=== PATIENT | female | born 1975 | race American Indian/Alaskan Native ===

== ENCOUNTER 2017-01-21 13:29 | Emergency (ER) | payer MEDICAID ==
--- NOTE | 2017-01-21 14:26 | Emergency Department Report ---
ED Psych HPI - General Chief Complaint: Altered Mental Status Stated Complaint: AMS Time Seen by Provider: 01/21/17 14:25 Source: EMS Mode of arrival: Stretcher Limitations: No Limitations - History of Present Illness MD Complaint: feels depressed, altered mental status Onset/Timin -: Gradual, days(s) Associated Psychiatric Symptoms: depression, auditory hallucinations, visual hallucinations Quality: constant Improves With: none Worsens With: none Context: not taking psychiatric, significant life stressor Associated Symptoms: confusion, insomnia. denies: headache, shortness of breath , nausea, vomiting, syncope Treatments Prior to Arrival: chemical restraints - Related Data Home Medications Medication Instructions Recorded Confirmed Last Taken Ibuprofen [Motrin] 800 mg PO Q8HR PRN 01/21/17 01/21/17 Unknown Allergies Allergy/AdvReac Type Severity Reaction Status Date / Time ibuprofen [From Motrin] Allergy Rash Verified 07/30/14 09:18 ketorolac tromethamine Allergy Rash Verified 07/30/14 09:18 [From Toradol] NSAIDS (Non-Steroidal AdvReac Nausea Verified 07/30/14 09:18 Anti-Inflamma ED Review of Systems ROS: Stated complaint: AMS Other details as noted in HPI Comment: Unobtainable due to pts medical conditions ED Past Medical Hx - Past Medical History Hx Hypertension: Yes Hx Arthritis: Yes Hx Psychiatric Treatment: Yes (bipolar) Additional medical history: endometriosis - Surgical History Hx Cholecystectomy: Yes Hx Appendectomy: Yes Additional Surgical History: hysterectomy, hernia repair, bowel resection secondary to adhesions r/t endometriosis - Social History Smoking Status: Current Some Day Smoker Substance Use Type: None - Medications Home Medications: Home Medications Medication Instructions Recorded Confirmed Last Taken Type Ibuprofen [Motrin] 800 mg PO Q8HR PRN 01/21/17 01/21/17 Unknown History ED Physical Exam - General Limitations: Altered Mental Status General appearance: in no apparent distress - Head Head exam: Present: atraumatic, normocephalic - Eye Eye exam: Present: normal appearance - ENT ENT exam: Present: mucous membranes moist - Neck Neck exam: Present: normal inspection - Respiratory Respiratory exam: Present: normal lung sounds bilaterally. Absent: respiratory distress - Cardiovascular Cardiovascular Exam: Present: regular rate, normal rhythm. Absent: systolic murmur, diastolic murmur, rubs, gallop - GI/Abdominal GI/Abdominal exam: Present: soft, normal bowel sounds - Extremities Exam Extremities exam: Present: normal inspection - Back Exam Back exam: Present: normal inspection - Neurological Exam Neurological exam: Present: alert, oriented X3 - Psychiatric Psychiatric exam: Present: depressed. Absent: suicidal ideation - Skin Skin exam: Present: warm, dry, intact, normal color. Absent: rash ED Course Vital Signs 01/21/17 01/21/17 01/21/17 13:43 14:30 15:30 Temperature 98 F Pulse Rate 62 61 60 Respiratory 16 16 14 Rate Blood Pressure 137/49 Blood Pressure 132/75 121/83 [Right] O2 Sat by Pulse 100 99 100 Oximetry 01/21/17 17:55 Temperature 100.5 F H Pulse Rate 83 Respiratory 16 Rate Blood Pressure Blood Pressure 133/86 [Right] O2 Sat by Pulse 100 Oximetry ED Medical Decision Making - Lab Data Result diagrams: 01/21/17 13:54 01/21/17 13:54 - EKG Data When compared to previous EKG there are: no significant change - Medical Decision Making patient back to baseline, no symptoms, at this time/ , will obtain a head ct prior to discharge, doing well and spoke to her huey garzon Critical care attestation.: If time is entered above; I have spent that time in minutes in the direct care of this critically ill patient, excluding procedure time. ED Disposition Clinical Impression: Weakness Disposition: DISCHARGED TO HOME OR SELFCARE Is pt being admited?: No Does the pt Need Aspirin: No Condition: Stable Instructions: Weakness (ED)
[2017-01-21 14:35] LABS: Urine Drugs of Abuse Note Disclamer
[2017-01-21 14:37] LABS: Anion Gap 27 mmol/L; Basophils % (Auto) 0.2 % (0.0-1.8); Blood Urea Nitrogen 10 mg/dL (7-17); Calcium 9.3 mg/dL (8.4-10.2); Carbon Dioxide 17 mmol/L (22-30); Glucose 91 mg/dL (65-100); Hematocrit 41.7 % (30.3-42.9); Hemoglobin 13.7 gm/dl (10.1-14.3); Mean Corpuscular HGB Conc 33 % (30-34); Mean Corpuscular Hemoglobin 33 pg (28-32); Mean Corpuscular Volume 102 fl (79-97); Platelet Count 188 K/mm3 (140-440); Potassium 3.1 mmol/L (3.6-5.0); Red Blood Count 4.09 M/mm3 (3.65-5.03); Sodium 145 mmol/L (137-145); White Blood Count 11.9 K/mm3 (4.5-11.0)
[2017-01-21 15:04] LABS: Bacteria,Urine 2+ /HPF (Negative); Bilirubin,Urine NEG (Negative); Blood,Urine MOD (Negative); Granular Casts,Urine 8 /LPF; Ketones,Urine NEG (Negative); Leukocyte Esterase,Urine NEG (Negative); Mucus,Urine 3+ /HPF; Nitrite,Urine NEG (Negative); Urobilinogen,Urine < 2.0 mg/dL (<2.0)
[2017-01-21] MEDS ORDERED: TYLENOL ONE (18:01)
[2017-01-21] MEDS ORDERED: TYLENOL PO ONE (18:06)
--- NOTE | 2017-01-21 19:42 | Cat Scan Report ---
FINAL REPORT PROCEDURE: CT HEAD/BRAIN WO CON TECHNIQUE: Computerized tomography of the head was performed without contrast material. HISTORY: Altered Mental Status COMPARISON: No prior studies are available for comparison. FINDINGS: Skull and scalp: Normal. Paranasal sinuses: Normal. Ventricles and subarachnoid spaces: Normal. Cerebrum: No evidence of hemorrhage, acute infarction or mass . Cerebellum and brainstem: No evidence of hemorrhage, acute infarction or mass. Vasculature: Normal. Comments: None. IMPRESSION: There is no evidence of an acute intracranial process.
[2017-01-21 19:51] VITALS: BP 115/72
== END 2017-01-21 20:04 | disposition home or self-care (01) ==
LOC: ED 13:29
DX: R53.1 Weakness (principal); I10 Essential (primary) hypertension; M19.90 Unspecified osteoarthritis, unspecified site; F31.9 Bipolar disorder, unspecified; F17.200 Nicotine dependence, unspecified, uncomplicated; Z90.49 Acquired absence of other specified parts of digestive tract; Z88.6 Allergy status to analgesic agent; Z88.8 Allergy status to other drugs, medicaments and biological substances
CPT/HCPCS: 36415; 70450; 80048; 80307; 81001; 81025; 82140; 85025; 93005; 93010; 99285; G0480; 80320

== ENCOUNTER 2017-10-29 05:44 | Emergency (ER) | payer MEDICAID, OTHER ==
[2017-10-29] MEDS ORDERED: DILAUDID IV ONE ×2 (07:05→11:33)
[2017-10-29] MEDS ORDERED: NACL 0.9% 1000 ML 1,000 ML IV ONE (07:05)
[2017-10-29] MEDS ORDERED: ZOFRAN IV ONE ×2 (07:05→11:34)
--- NOTE | 2017-10-29 07:12 | Emergency Department Report ---
ED Abdominal Pain HPI - General Chief Complaint: Abdominal Pain Stated Complaint: ABDOMINAL PAIN Time Seen by Provider: 10/29/17 06:54 Source: patient Mode of arrival: Stretcher Limitations: No Limitations - History of Present Illness Initial Comments: Ms. Torres is a 41 yo female with hx of endometriosis. 2 days of abdominal pain and vomiting hx of several surgeries including hysterectomy, pelvic/abdominal mesh insertion , laparoscopic/exploratory, cholecystectomy, appendectomy -: Gradual, days(s) (2) Location: diffuse (periumbilical) Radiation: none Migration to: no migration Severity: severe Severity scale (0 -10): 10 Quality: sharp, burning Consistency: constant Improves With: nothing Worsens With: nothing Associated Symptoms: nausea, vomiting. denies: diarrhea, fever, chills, dysuria - Related Data Home Medications Medication Instructions Recorded Confirmed Last Taken Ibuprofen [Motrin] 800 mg PO Q8HR PRN 01/21/17 01/21/17 Unknown Previous Rx's Medication Instructions Recorded Last Taken Type ALPRAZolam [Xanax TAB] 0.5 mg PO BID PRN #14 tab 01/21/17 Unknown Rx HYDROcodone/APAP 5-325 [[place] 1 each PO Q4HR PRN #10 tablet 10/29/17 Unknown Rx 5/325] Promethazine [Phenergan TAB] 25 mg PO Q6HR PRN #10 tab 10/29/17 Unknown Rx Allergies Allergy/AdvReac Type Severity Reaction Status Date / Time ibuprofen [From Motrin] Allergy Rash Verified 07/30/14 09:18 ketorolac tromethamine Allergy Rash Verified 07/30/14 09:18 [From Toradol] NSAIDS (Non-Steroidal AdvReac Nausea Verified 07/30/14 09:18 Anti-Inflamma ED Review of Systems ROS: Stated complaint: ABDOMINAL PAIN Other details as noted in HPI Comment: All other systems reviewed and negative Constitutional: denies: fever, malaise Respiratory: denies: cough Cardiovascular: denies: chest pain ED Past Medical Hx - Past Medical History Hx Hypertension: Yes Hx Arthritis: Yes Hx Psychiatric Treatment: Yes (bipolar) Additional medical history: endometriosis - Surgical History Hx Cholecystectomy: Yes Hx Appendectomy: Yes Additional Surgical History: hysterectomy, hernia repair, bowel resection secondary to adhesions r/t endometriosis - Social History Smoking Status: Current Every Day Smoker Substance Use Type: None - Medications Home Medications: Home Medications Medication Instructions Recorded Confirmed Last Taken Type ALPRAZolam [Xanax TAB] 0.5 mg PO BID PRN #14 tab 01/21/17 Unknown Rx Ibuprofen [Motrin] 800 mg PO Q8HR PRN 01/21/17 01/21/17 Unknown History HYDROcodone/APAP 5-325 [[place] 1 each PO Q4HR PRN #10 tablet 10/29/17 Unknown Rx 5/325] Promethazine [Phenergan TAB] 25 mg PO Q6HR PRN #10 tab 10/29/17 Unknown Rx ED Physical Exam - General Limitations: No Limitations General appearance: alert, in no apparent distress, other (appears uncomfortable ) - Head Head exam: Present: atraumatic, normocephalic - Eye Eye exam: Present: normal appearance - ENT ENT exam: Present: normal orophraynx, mucous membranes moist - Neck Neck exam: Present: normal inspection. Absent: meningismus - Respiratory Respiratory exam: Present: normal lung sounds bilaterally. Absent: respiratory distress, wheezes, rales, rhonchi - Cardiovascular Cardiovascular Exam: Present: regular rate, normal rhythm, normal heart sounds. Absent: systolic murmur, diastolic murmur, rubs, gallop - GI/Abdominal GI/Abdominal exam: Present: soft. Absent: distended, tenderness, guarding, rebound - Extremities Exam Extremities exam: Present: normal inspection - Back Exam Back exam: Present: normal inspection - Neurological Exam Neurological exam: Present: alert, oriented X3 - Psychiatric Psychiatric exam: Present: normal affect, normal mood - Skin Skin exam: Present: warm, dry, intact, normal color. Absent: rash ED Course Vital Signs 10/29/17 10/29/17 10/29/17 06:16 07:15 07:20 Temperature 98 F 98.6 F Pulse Rate 76 53 L Respiratory 16 14 Rate Blood Pressure 158/94 Blood Pressure 150/94 [Left] O2 Sat by Pulse 100 100 100 Oximetry 10/29/17 10/29/17 10/29/17 07:22 07:33 07:47 Temperature Pulse Rate Respiratory 14 Rate Blood Pressure 150/94 150/94 Blood Pressure [Left] O2 Sat by Pulse 100 75 L 99 Oximetry 10/29/17 10/29/17 10/29/17 07:50 08:00 08:15 Temperature Pulse Rate Respiratory 14 Rate Blood Pressure 167/95 167/95 Blood Pressure [Left] O2 Sat by Pulse 99 97 Oximetry 10/29/17 10/29/17 10/29/17 08:30 08:45 09:00 Temperature 98.7 F Pulse Rate 88 Respiratory 16 Rate Blood Pressure 145/76 144/80 134/83 Blood Pressure 134/83 [Left] O2 Sat by Pulse 98 97 100 Oximetry 10/29/17 10/29/17 10/29/17 09:15 09:31 09:45 Temperature Pulse Rate Respiratory Rate Blood Pressure 138/70 131/62 146/83 Blood Pressure [Left] O2 Sat by Pulse 100 100 100 Oximetry 10/29/17 10/29/17 10/29/17 10:00 10:29 10:30 Temperature Pulse Rate Respiratory Rate Blood Pressure 150/75 146/83 146/83 Blood Pressure [Left] O2 Sat by Pulse 98 80 L 87 Oximetry 10/29/17 10/29/17 10/29/17 10:45 11:00 11:15 Temperature Pulse Rate Respiratory Rate Blood Pressure 140/79 145/78 150/75 Blood Pressure [Left] O2 Sat by Pulse 97 95 99 Oximetry 10/29/17 10/29/17 11:31 11:43 Temperature Pulse Rate Respiratory 16 Rate Blood Pressure 150/75 Blood Pressure [Left] O2 Sat by Pulse 98 Oximetry ED Medical Decision Making - Lab Data Result diagrams: 10/29/17 06:55 10/29/17 06:55 - Medical Decision Making Ms. Torres presents with 2 days of abdominal pain. No evidence of obstruction. No evidence of peritonitis. She is currently pain-free. She tolerated food and drink in the ED. I prescribed 10 tablets of [place] and promethazine. Critical care attestation.: If time is entered above; I have spent that time in minutes in the direct care of this critically ill patient, excluding procedure time. ED Disposition Clinical Impression: Abdominal pain Disposition: DC-01 TO HOME OR SELFCARE Is pt being admited?: No Does the pt Need Aspirin: No Condition: Stable Instructions: Abdominal Pain (ED) Prescriptions: HYDROcodone/APAP 5-325 [[place] 5/325] 1 each PO Q4HR PRN #10 tablet PRN Reason: Pain Promethazine [Phenergan TAB] 25 mg PO Q6HR PRN #10 tab PRN Reason: Nausea Referrals: [facility] [Outside] - 3-5 Days Time of Disposition: 12:26
[2017-10-29 09:56] LABS: Basophils % (Auto) 0.5 % (0.0-1.8); Eosinophils % (Auto) 0.3 % (0.0-4.3); Hematocrit 40.8 % (30.3-42.9); Hemoglobin 13.9 gm/dl (10.1-14.3); Lymphocytes # (Auto) 2.3 K/mm3 (1.2-5.4); Lymphocytes % (Auto) 34.6 % (13.4-35.0); Mean Corpuscular HGB Conc 34 % (30-34); Mean Corpuscular Hemoglobin 33 pg (28-32); Mean Corpuscular Volume 97 fl (79-97); Monocytes # (Auto) 0.4 K/mm3 (0.0-0.8); Monocytes % (Auto) 6.1 % (0.0-7.3); Platelet Count 238 K/mm3 (140-440); Red Cell Distribution Width 14.5 % (13.2-15.2)
[2017-10-29 10:02] LABS: Alanine Aminotransferase 11 units/L (7-56); Albumin 4.9 g/dL (3.9-5); BUN/Creatinine Ratio 12; Blood Urea Nitrogen 7 mg/dL (7-17); Calcium 9.4 mg/dL (8.4-10.2); Hemolysis Index 13; Lipase 72 units/L (13-60)
[2017-10-29 11:16] LABS: Bilirubin,Urine NEG (Negative); Blood,Urine MOD (Negative); Color,Urine Yellow (Yellow); Mucus,Urine 2+ /HPF; Protein,Urine <15 mg/dL mg/dL (Negative)
--- NOTE | 2017-10-29 11:56 | Cat Scan Report ---
CT ABDOMEN PELVIS WITH CONTRAST: HISTORY: abdominal pain. COMPARISON: none. TECHNIQUE: Helical CT in 1.25mm intervals following IV contrast. Sagittal and coronal reconstructions. FINDINGS: Lung bases: Normal. Liver: Normal. Biliary system: Normal. Pancreas: Normal. Spleen: Normal. Kidneys/ureters/bladder: Normal. Adrenal glands: Normal. Aorta: Normal. Intestines: Normal. Appendix: Not confidently identified, correlate with surgical history. Pelvic viscera: Hysterectomy changes are suspected. Ascites: Trace pelvic ascites is likely physiologic. Adenopathy: None. Musculoskeletal: Normal. IMPRESSION: No acute process is identified in the abdomen or pelvis.
[2017-10-29 13:07] VITALS: BP 148/91
== END 2017-10-29 13:08 | disposition home or self-care (01) ==
LOC: ED 05:44
DX: R10.9 Unspecified abdominal pain (principal); I10 Essential (primary) hypertension; F17.200 Nicotine dependence, unspecified, uncomplicated; F31.9 Bipolar disorder, unspecified; M19.90 Unspecified osteoarthritis, unspecified site; Z90.49 Acquired absence of other specified parts of digestive tract; Z90.710 Acquired absence of both cervix and uterus; Z88.6 Allergy status to analgesic agent
CPT/HCPCS: 36415; 74177; 80053; 81001; 83690; 85025; 96361; 96374; 96375; 96376; 99285; J1170; J2405; J7030; Q9967

== ENCOUNTER 2020-01-17 19:05 | Emergency (ER) | payer SELFPAY ==
[2020-01-17 19:28] VITALS: BP 162/97
[2020-01-17 21:30] LABS: Basophils # (Auto) 0.1 K/mm3 (0.0-0.1); Basophils % (Auto) 0.9 % (0.0-1.8); Eosinophils # (Auto) 0.1 K/mm3 (0.0-0.4); Eosinophils % (Auto) 1.1 % (0.0-4.3); Hematocrit 37.7 % (30.3-42.9); Hemoglobin 12.7 gm/dl (10.1-14.3); Lymphocytes # (Auto) 3.5 K/mm3 (1.2-5.4); Lymphocytes % (Auto) 38.8 % (13.4-35.0); Mean Corpuscular HGB Conc 34 % (30-34); Mean Corpuscular Volume 96 fl (79-97); Monocytes # (Auto) 0.4 K/mm3 (0.0-0.8); Monocytes % (Auto) 4.8 % (0.0-7.3); Platelet Count 218 K/mm3 (140-440); Red Blood Count 3.92 M/mm3 (3.65-5.03); Red Cell Distribution Width 13.5 % (13.2-15.2)
[2020-01-17 21:47] LABS: Alanine Aminotransferase 9 units/L (7-56); Albumin 4.6 g/dL (3.9-5); BUN/Creatinine Ratio 10; Blood Urea Nitrogen 7 mg/dL (7-17); Calcium 9.4 mg/dL (8.4-10.2); Hemolysis Index 14
[2020-01-17] MEDS ORDERED: HYDROcodone/ACETAMINOPHEN 5-325 MG TAB PO ONE (22:17)
[2020-01-17] MEDS ORDERED: ONDANSETRON 4 MG ODT TAB PO ONE (22:17)
[2020-01-17 22:18] LABS: Bacteria,Urine 1+ /HPF (Negative); Bilirubin,Urine NEG (Negative); Blood,Urine SM (Negative); Color,Urine Straw (Yellow); Protein,Urine <15 mg/dL mg/dL (Negative); Urobilinogen,Urine < 2.0 mg/dL (<2.0); WBC,Urine < 1.0 /HPF (0.0-6.0)
--- NOTE | 2020-01-17 23:06 | Emergency Department Report ---
ED Abdominal Pain HPI - General Chief Complaint: Abdominal Pain Stated Complaint: ABD PAIN Time Seen by Provider: 01/17/20 22:13 Source: patient Mode of arrival: Ambulatory Limitations: No Limitations - History of Present Illness Initial Comments: Ms. Torres is a 44-year-old -[place] female with a history of fibroids and partial hysterectomy. She states increasing abdominal pain for the past week. There is no nausea vomiting, no melena ,no constipation, no fevers or chills. Abdominal pain described as cramping, 5/10. pt has seen [facility] for this problem in 2 yrs. MD Complaint: abdominal pain Onset/Timin -: week(s) Location: LLQ, RLQ Radiation: LLQ, RLQ Migration to: LLQ, RLQ Severity scale (0 -10): 7 Quality: cramping, aching Consistency: constant Improves With: nothing Worsens With: nothing Associated Symptoms: denies: nausea, vomiting, diarrhea, fever, chills, dysuria, melena - Related Data Home Medications Medication Instructions Recorded Confirmed Last Taken Ibuprofen [Motrin] 800 mg PO Q8HR PRN 01/21/17 01/21/17 Unknown Previous Rx's Medication Instructions Recorded Last Taken Type ALPRAZolam [Xanax TAB] 0.5 mg PO BID PRN #14 tab 01/21/17 Unknown Rx HYDROcodone/APAP 5-325 [[place] 1 each PO Q4HR PRN #10 tablet 10/29/17 Unknown Rx 5/325] Promethazine [Phenergan] 25 mg PO Q6HR PRN #10 tab 10/29/17 Unknown Rx HYDROcodone/APAP 5-325 [[place] 1 each PO Q6HR PRN #15 tablet 06/19/18 Unknown Rx 5/325] medroxyPROGESTERone ACETATE 10 mg PO DAILY #5 tablet 06/19/18 Unknown Rx [Provera] Acetaminophen/Codeine [Tylenol 1 tab PO Q6H PRN #12 tab 01/18/20 Unknown Rx /Codeine # 3 tab] Allergies Allergy/AdvReac Type Severity Reaction Status Date / Time ibuprofen [From Motrin] Allergy Rash Verified 07/30/14 09:18 ketorolac tromethamine Allergy Rash Verified 07/30/14 09:18 [From Toradol] NSAIDS (Non-Steroidal AdvReac Nausea Verified 07/30/14 09:18 Anti-Inflamma ED Review of Systems ROS: Stated complaint: ABD PAIN Other details as noted in HPI Constitutional: denies: chills, fever Eyes: denies: eye pain, eye discharge, vision change ENT: denies: ear pain, throat pain Respiratory: denies: cough, shortness of breath, wheezing Cardiovascular: denies: chest pain, palpitations Endocrine: no symptoms reported Gastrointestinal: abdominal pain. denies: nausea, vomiting, diarrhea, constipation, melena Genitourinary: as per HPI Musculoskeletal: denies: back pain, joint swelling, arthralgia Skin: denies: rash, lesions Neurological: denies: headache, weakness, paresthesias Psychiatric: denies: anxiety, depression Hematological/Lymphatic: denies: easy bleeding, easy bruising ED Past Medical Hx - Past Medical History Previous Medical History?: Yes Hx Hypertension: Yes Hx Arthritis: Yes Hx Psychiatric Treatment: Yes (bipolar) Additional medical history: endometriosis - Surgical History Past Surgical History?: Yes Hx Cholecystectomy: Yes Hx Appendectomy: Yes Additional Surgical History: hysterectomy, hernia repair, bowel resection secondary to adhesions r/t endometriosis - Social History Smoking Status: Current Every Day Smoker Substance Use Type: None - Medications Home Medications: Home Medications Medication Instructions Recorded Confirmed Last Taken Type ALPRAZolam [Xanax TAB] 0.5 mg PO BID PRN #14 tab 01/21/17 Unknown Rx Ibuprofen [Motrin] 800 mg PO Q8HR PRN 01/21/17 01/21/17 Unknown History HYDROcodone/APAP 5-325 [[place] 1 each PO Q4HR PRN #10 tablet 10/29/17 Unknown Rx 5/325] Promethazine [Phenergan] 25 mg PO Q6HR PRN #10 tab 10/29/17 Unknown Rx HYDROcodone/APAP 5-325 [[place] 1 each PO Q6HR PRN #15 tablet 06/19/18 Unknown Rx 5/325] medroxyPROGESTERone ACETATE 10 mg PO DAILY #5 tablet 06/19/18 Unknown Rx [Provera] Acetaminophen/Codeine [Tylenol 1 tab PO Q6H PRN #12 tab 01/18/20 Unknown Rx /Codeine # 3 tab] ED Physical Exam - General Limitations: No Limitations General appearance: alert, in no apparent distress - Head Head exam: Present: atraumatic, normocephalic - Eye Eye exam: Present: normal appearance - ENT ENT exam: Present: mucous membranes moist - Neck Neck exam: Present: normal inspection - Respiratory Respiratory exam: Present: normal lung sounds bilaterally. Absent: respiratory distress, wheezes, stridor, chest wall tenderness - Cardiovascular Cardiovascular Exam: Present: regular rate, normal rhythm, normal heart sounds. Absent: systolic murmur, diastolic murmur, rubs, gallop - GI/Abdominal GI/Abdominal exam: Present: soft, tenderness (bilat lower abd ), normal bowel sounds. Absent: guarding, rebound, rigid, bruit, hernia - Rectal Rectal exam: Present: deferred - Extremities Exam Extremities exam: Present: normal inspection, full ROM, normal capillary refill. Absent: tenderness - Back Exam Back exam: Present: normal inspection, full ROM. Absent: tenderness, CVA tenderness (R), CVA tenderness (L), rash noted - Neurological Exam Neurological exam: Present: alert, oriented X3 - Psychiatric Psychiatric exam: Present: normal affect, normal mood - Skin Skin exam: Present: warm, dry, intact, normal color. Absent: rash ED Course Vital Signs 01/17/20 19:26 Temperature 99.6 F Pulse Rate 73 Respiratory 18 Rate Blood Pressure 162/97 O2 Sat by Pulse 100 Oximetry ED Medical Decision Making - Lab Data Result diagrams: 01/17/20 19:37 01/17/20 19:37 Labs 01/17/20 01/17/20 01/17/20 19:37 19:37 19:37 WBC 9.0 RBC 3.92 Hgb 12.7 Hct 37.7 MCV 96 MCH 32 MCHC 34 RDW 13.5 Plt Count 218 Lymph % (Auto) 38.8 H [place] % (Auto) 4.8 Eos % (Auto) 1.1 Baso % (Auto) 0.9 Lymph # 3.5 [place] # 0.4 Eos # 0.1 Baso # 0.1 Seg Neutrophils % 54.4 Seg Neutrophils # 4.9 Sodium 141 Potassium 3.8 Chloride 100.3 Carbon Dioxide 26 Anion Gap 19 BUN 7 Creatinine 0.7 Estimated GFR > 60 BUN/Creatinine Ratio 10 Glucose 87 Calcium 9.4 Total Bilirubin 0.30 AST 20 ALT 9 Alkaline Phosphatase 93 Total Protein 6.6 Albumin 4.6 Albumin/Globulin Ratio 2.3 HCG, Qual Negative Urine Color Urine Turbidity Urine pH Ur Specific Ray Urine Protein Urine Glucose (UA) Urine Ketones Urine Blood Urine Nitrite Urine Bilirubin Urine Urobilinogen Ur Leukocyte Esterase Urine WBC (Auto) Urine RBC (Auto) U Epithel Cells (Auto) Urine Bacteria (Auto) 01/17/20 Unknown WBC RBC Hgb Hct MCV MCH MCHC RDW Plt Count Lymph % (Auto) [place] % (Auto) Eos % (Auto) Baso % (Auto) Lymph # [place] # Eos # Baso # Seg Neutrophils % Seg Neutrophils # Sodium Potassium Chloride Carbon Dioxide Anion Gap BUN Creatinine Estimated GFR BUN/Creatinine Ratio Glucose Calcium Total Bilirubin AST ALT Alkaline Phosphatase Total Protein Albumin Albumin/Globulin Ratio HCG, Qual Urine Color Straw Urine Turbidity Clear Urine pH 7.0 Ur Specific Ray 1.003 Urine Protein <15 mg/dl Urine Glucose (UA) Neg Urine Ketones Neg Urine Blood Sm Urine Nitrite Neg Urine Bilirubin Neg Urine Urobilinogen < 2.0 Ur Leukocyte Esterase Neg Urine WBC (Auto) < 1.0 Urine RBC (Auto) 1.0 U Epithel Cells (Auto) 1.0 Urine Bacteria (Auto) 1+ - Radiology Data Radiology results: report reviewed, image reviewed Findings Reporting MD: Autumn Connolly Dictation Time: January 17, 2020 22:29 Supervisor Film Processing: Not available Manager Bank Date: EXAMINATION: Complete pelvic ultrasound, 01/17/2020 CLINICAL INFORMATION: Generalized pelvic pain. The patient has had complete hysterectomy and oophorectomy. COMPARISON: CT of the abdomen and pelvis, 10/29/2017 FINDINGS: The uterus and bilateral adnexal regions are surgically absent. No free pelvic fluid is seen. IMPRESSION: 1. Status post hysterectomy and oophorectomy. Signer Name: Autumn Connolly MD Signed: 01/17/2020 10:29 PM Workstation Name: [id number] - Medical Decision Making Labs normal, ultrasound normal , plan follow-up with [facility], follow-up with primary care doctor return to emergency should symptoms worsen. will dc to home with rx for nsaids prn , pt verbalized agreement and understanding of discharge plan. Critical care attestation.: If time is entered above; I have spent that time in minutes in the direct care of this critically ill patient, excluding procedure time. ED Disposition Clinical Impression: Abdominal pain Qualifiers: Abdominal location: lower abdomen, unspecified Qualified Code(s): R10.30 - Lower abdominal pain, unspecified Disposition: DC-01 TO HOME OR SELFCARE Is pt being admited?: No Does the pt Need Aspirin: No Condition: Stable Instructions: Abdominal Pain (ED) Prescriptions: Acetaminophen/Codeine [Tylenol /Codeine # 3 tab] 1 tab PO Q6H PRN #12 tab PRN Reason: pain Referrals: CRISTY DIETRICH MD [Staff Physician] - 3-5 Days JAMA BAZAN MD [Referring] - 3-5 Days Forms: Work/School Release Form(ED) Time of Disposition: 00:31
--- NOTE | 2020-01-17 23:33 | Ultrasound Report ---
EXAMINATION: Complete pelvic ultrasound, 01/17/2020 CLINICAL INFORMATION: Generalized pelvic pain. The patient has had complete hysterectomy and oophorec izzy. COMPARISON: CT of the abdomen and pelvis, 10/29/2017 FINDINGS: The uterus and bilateral adnexal regions are surgically absent. No free pelvic fluid is seen. IMPRESSION: 1. Status post hysterectomy and oophorectomy. Signer Name: Autumn Connolly MD Signed: 01/17/2020 11:29 PM Workstation Name: [email or web address]
== END 2020-01-18 00:45 | disposition home or self-care (01) ==
LOC: ED 19:05
DX: R10.31 Right lower quadrant pain (principal); R10.32 Left lower quadrant pain; I10 Essential (primary) hypertension; M19.91 Primary osteoarthritis, unspecified site; F31.9 Bipolar disorder, unspecified; F17.200 Nicotine dependence, unspecified, uncomplicated; Z90.49 Acquired absence of other specified parts of digestive tract; Z98.890 Other specified postprocedural states; Z79.1 Long term (current) use of non-steroidal anti-inflammatories (NSAID); Z79.899 Other long term (current) drug therapy; Z88.8 Allergy status to other drugs, medicaments and biological substances
CPT/HCPCS: 36415; 76856; 80053; 81001; 84703; 85025; Q0162

== ENCOUNTER 2021-12-10 00:25 | Emergency (ER) | payer OTHER ==
[2021-12-10 02:23] VITALS: BP 178/92
== END 2021-12-10 03:00 | disposition left against medical advice (07) ==
LOC: ED 00:25
DX: M79.606 Pain in leg, unspecified (principal); Z53.21 Procedure and treatment not carried out due to patient leaving prior to being seen by health care provider